=== PATIENT | female | born 1995 | race Caucasian/White ===

== ENCOUNTER → 2021-04-27 00:52 | Observation (INO) ==
[2021-04-26 22:51] VITALS: BP 125/67; PULSE 80
== END | disposition home or self-care (01) ==
LOC: 1NENULAB
PROVIDERS: ADMIT Obstetrics & Gynecology; ATTEND Obstetrics & Gynecology

== ENCOUNTER 2021-04-28 04:00 | Inpatient (IN) ==
[2021-04-28] MEDS ORDERED: *HR* Nalbuphine 10 MG/ML AMPUL IV PRN (04:03)
[2021-04-28] MEDS ORDERED: Metoclopramide 10 MG/2 ML VIAL IVP PRN (04:03)
[2021-04-28] MEDS ORDERED: Lidocaine 1% 20 ML MDV INFILT PRN (04:03)
[2021-04-28] MEDS ORDERED: Famotidine 20 MG/2 ML VIAL IVP PRN (04:03)
[2021-04-28] MEDS ORDERED: Ondansetron 4 MG/2 ML VIAL IVP PRN (04:03)
[2021-04-28] MEDS ORDERED: Naloxone 0.4 MG/ML INJ IVP PRN (04:03)
[2021-04-28] MEDS ORDERED: Ringers Solution, Lactated 1,000 ML IVC SCH (04:15)
[2021-04-28] MEDS ORDERED: Oxytocin 20 units/ LR 1000 mL 20 UNIT/1,000 ML BAG IVC SCH ×2 (04:15→12:40)
[2021-04-28 04:38] LABS: Basophils % 0.3 %; Eosinophils # 0.2 K/mcL (0.0-0.6); Eosinophils % 1.6 %; Hematocrit 36.5 % (35.3-44.9); Hemoglobin 11.9 g/dL (11.5-15.4); Immature Granulocytes % 0.8 % (0-4); Lymphocytes # 2.5 K/mcL (0.6-4.6); Lymphocytes % 23.3 %; Mean Corpuscular HGB Conc 32.6 g/dL (31.6-35.5); Mean Corpuscular Hemoglobin 30.4 pg (28.0-33.3); Mean Corpuscular Volume 93.1 fL (83.0-100.0); Mean Platelet Volume 12.5 fL (9.4-12.4); Monocytes # 0.9 K/mcL (0.0-1.3); Monocytes % 8.5 %; Platelet Count 134 K/mcL (140-400); Red Blood Count 3.92 M/mcL (3.82-4.97); Segmented Neutrophils % 65.5 %; White Blood Count 10.6 K/mcL (4.3-11.1)
[2021-04-28 04:45] LABS: Amphetamine Screen,Urine Negative ng/mL (Cutoff=1000); Barbiturate Screen,Urine Negative ng/mL (Cutoff=200); Benzodiazepines Screen,Urine Negative ng/mL (Cutoff=200); Cannabinoid Screen,Urine Negative ng/mL (Cutoff = 50); Cocaine Screen,Urine Negative ng/mL (Cutoff= 300); Opiate Screen,Urine Negative ng/mL (Cutoff=300); Phencyclidine Screen,Urine Negative ng/mL (Cutoff=25)
[2021-04-28 05:14] LABS: Influenza A PCR Negative (Negative); Influenza B PCR Negative (Negative); Resp. Syncytial Virus PCR Negative (Negative)
[2021-04-28 05:18] LABS: SARS-CoV-2 by PCR (In House) Negative (Negative)
[2021-04-28] MEDS ORDERED: EPHEDrine 50 MG/ML VIAL IVP PRN (07:55)
[2021-04-28] MEDS ORDERED: Epidural Premix (fent/bupiv) 110 ML EP SCH (08:00)
[2021-04-28] MEDS ORDERED: *HR* FentaNYL (PF) 100 MCG/2 ML VIAL ONE (08:23)
[2021-04-28] MEDS ORDERED: Ropivacaine/PF 0.2% 20 ML VIAL ONE (08:24)
[2021-04-28] MEDS ORDERED: Epidural Premix (fent/bupiv) 110 ML EP ONE (08:25)
[2021-04-28] MEDS ORDERED: Benzocaine/Menthol 56 GM AEROSOL SPRAY TP PRN (12:40)
[2021-04-28] MEDS ORDERED: Oxytocin 20 units/ LR 1000 mL 20 UNIT/1,000 ML BAG IVC ONE (12:40)
[2021-04-28] MEDS ORDERED: Measles/Mumps/Rubella Vacc 0.5 ML VIAL SQ PRN (12:40)
[2021-04-28] MEDS ORDERED: Ondansetron ODT 4 MG TAB.RAPDIS SL PRN (12:40)
[2021-04-28] MEDS ORDERED: Rho Immune Globulin 1,500 UNIT SYRINGE IM PRN (12:40)
[2021-04-28] MEDS ORDERED: Lanolin 7 G OINT...G. TP PRN (12:40)
[2021-04-28] MEDS: Ibuprofen 600 MG TABLET PO SCH ×2 (14:21→21:34)
[2021-04-28] MEDS: Acetaminophen 325 MG TABLET PO SCH ×2 (15:23→21:34)
[2021-04-29 03:26] VITALS: O2SAT 98
[2021-04-29] MEDS: Ibuprofen 600 MG TABLET PO SCH ×2 (03:55→07:54)
[2021-04-29] MEDS: Acetaminophen 325 MG TABLET PO SCH ×2 (03:56→07:54)
[2021-04-29 04:32] LABS: Basophils % 0.3 %
[2021-04-29 04:34] LABS: Eosinophils # 0.2 K/mcL (0.0-0.6); Eosinophils % 2.1 %; Hematocrit 30.4 % (35.3-44.9); Hemoglobin 9.8 g/dL (11.5-15.4); Immature Granulocytes % 0.9 % (0-4); Lymphocytes # 2.5 K/mcL (0.6-4.6); Lymphocytes % 25.2 %; Mean Corpuscular HGB Conc 32.2 g/dL (31.6-35.5); Mean Platelet Volume 12.3 fL (9.4-12.4); Monocytes # 0.8 K/mcL (0.0-1.3); Neutrophils # 6.3 K/mcL (1.6-8.9); Platelet Count 111 K/mcL (140-400); Red Blood Count 3.27 M/mcL (3.82-4.97); Segmented Neutrophils % 63.5 %; White Blood Count 9.9 K/mcL (4.3-11.1)
[2021-04-29 08:25] VITALS: BP 104/62; PULSE 81; TEMP 98.4
[2021-04-29] MEDS ORDERED: Prenatal Vit/FA 1 EACH TABLET PO SCH (09:00)
== END 2021-04-29 13:35 | disposition home or self-care (01) | DRG 807 ==
LOC: 1NENULAB 04:01 → 1NENUOBS 13:46
PROVIDERS: ADMIT Student in an Organized Health Care Education/Training Program; ATTEND Student in an Organized Health Care Education/Training Program